=== PATIENT | male | born 1980 ===

== ENCOUNTER 2020-09-03 14:55 | Inpatient (IN) | payer SELFPAY ==
[~2020-09-03 14:55] MED LIST: Iopamidol-370 76% 500 ML 1 ML ONE
[2020-09-03] MEDS ORDERED: Acetaminophen 500 MG TAB ONE (16:15)
[2020-09-03 16:51] LABS: #Lymphocytes 0.9 thou/uL (1.20-3.40); #Monocytes 0.7 thou/uL (0.11-0.59); #Neutrophils 7.6 thou/uL (1.40-6.50); %Basophils 0.2 % (0.0-1.0); %Eosinophils 0.2 % (0.0-10.0); %Lymphocytes 9.5 % (21.0-51.0); %Monocytes 7.2 % (0.0-10.0); %Neutrophils 82.8 % (42.0-75.0); Hemoglobin 17.3 g/dL (14.0-18.0); Mean Corpuscular HGB CONC 34.2 g/dL (32.0-36.0); Mean Corpuscular Hemoglobin 32.6 pg (27.0-31.0); Mean Corpuscular Volume 95.3 fL (78.0-98.0); Mean Platelet Volume 8.5 fL (7.4-10.4); Platelet Count 263 thou/uL (130-400); RBC Distribution Width 11.8 % (11.5-14.5); Red Blood Cell (RBC) Count 5.32 mill/uL (4.70-6.10); White Blood Cell (WBC) Count 9.2 thou/uL (4.8-10.8)
[2020-09-03] MEDS ORDERED: Albuterol 200 PUFF (6.7GM INHALER) ONE (16:58)
[2020-09-03 17:15] LABS: ALT (SGPT) 60 U/L (8-55); AST (SGOT) 33 U/L (5-34); Albumin 3.6 g/dL (3.5-5.0); Alkaline Phosphatase 89 U/L (40-110); Anion Gap 12 mmol/L (10-20); BUN (Urea Nitrogen) 11 mg/dL (8.9-20.6); CK (CPK) 108 U/L (30-200); Calc. Creatinine Clearance 0 mL/min (70-130); Calcium 8.4 mg/dL (7.8-10.44); Carbon Dioxide 24 mmol/L (22-29); Chloride 104 mmol/L (98-107); Globulin 2.9 g/dL (2.4-3.5); Glucose 128 mg/dL (70-105); Potassium 4.1 mmol/L (3.5-5.1); Protein, Total 6.5 g/dL (6.0-8.3); Sodium 136 mmol/L (136-145)
[2020-09-04 03:37] VITALS: BMI 32.8
[2020-09-04] MEDS ORDERED: Ondansetron PF 4 MG/2 ML Vial IVP PRN (05:28)
[2020-09-04] MEDS ORDERED: Acetaminophen 325 MG TAB PO PRN (05:28)
[2020-09-04] MEDS ORDERED: REMDESIVIR 200 MG in Sodium Chloride 0.9% 250 ML 210 ML IV SCH (06:00)
[2020-09-04] MEDS: Dexamethasone 4 mg/ml Vial SLOW IVP SCH (06:29)
[2020-09-04 06:42] LABS: #Eosinphils 0.1 thou/uL (0.0-0.7); #Lymphocytes 0.9 thou/uL (1.20-3.40); #Monocytes 0.7 thou/uL (0.11-0.59); #Neutrophils 7.3 thou/uL (1.40-6.50); %Basophils 0.2 % (0.0-1.0); %Eosinophils 1.2 % (0.0-10.0); %Lymphocytes 9.7 % (21.0-51.0); %Monocytes 8.2 % (0.0-10.0); %Neutrophils 80.8 % (42.0-75.0); Hemoglobin 17.3 g/dL (14.0-18.0); Mean Corpuscular HGB CONC 35.3 g/dL (32.0-36.0); Mean Corpuscular Hemoglobin 33.8 pg (27.0-31.0); Mean Corpuscular Volume 95.7 fL (78.0-98.0); Mean Platelet Volume 8.7 fL (7.4-10.4); Platelet Count 250 thou/uL (130-400); RBC Distribution Width 11.7 % (11.5-14.5); Red Blood Cell (RBC) Count 5.11 mill/uL (4.70-6.10)
[2020-09-04 07:01] LABS: ALT (SGPT) 52 U/L (8-55); AST (SGOT) 32 U/L (5-34); Albumin 3.2 g/dL (3.5-5.0); Alkaline Phosphatase 83 U/L (40-110); Bilirubin, Direct 0.3 mg/dL (0.1-0.3); Bilirubin, Total 1.1 mg/dL (0.2-1.2); Protein, Total 6.7 g/dL (6.0-8.3)
[2020-09-04 07:02] LABS: Anion Gap 14 mmol/L (10-20); BUN (Urea Nitrogen) 12 mg/dL (8.9-20.6); Calc. Creatinine Clearance 223 mL/min (70-130); Calcium 8.7 mg/dL (7.8-10.44); Carbon Dioxide 19 mmol/L (22-29); Chloride 108 mmol/L (98-107); Glucose 101 mg/dL (70-105); Potassium 3.8 mmol/L (3.5-5.1); Sodium 137 mmol/L (136-145)
[2020-09-04] MEDS: Enoxaparin Sodium 40 MG/0.4 ML SYRINGE SC SCH ×2 (08:45→21:40)
[2020-09-04] MEDS: Zinc Sulfate 220 MG CAP PO SCH (08:45)
[2020-09-04] MEDS: Ascorbic Acid 500 mg Chewable Tablet PO SCH (08:45)
[2020-09-04] MEDS: Folic Acid 1 MG TAB PO SCH (08:45)
[2020-09-04] MEDS: Thiamine 100 MG TAB PO SCH (08:45)
[2020-09-04] MEDS: Famotidine 20 MG TAB PO SCH ×2 (08:45→21:40)
[2020-09-04] MEDS ORDERED: Benzonatate 100 MG CAP PO PRN (21:59)
[2020-09-04] MEDS ORDERED: guaiFENesin ER 600 MG TAB PO SCH (22:15)
[2020-09-05] MEDS: Dexamethasone 4 mg/ml Vial SLOW IVP SCH (05:37)
[2020-09-05 05:58] LABS: #Eosinphils 0.1 thou/uL (0.0-0.7); #Lymphocytes 1.2 thou/uL (1.20-3.40); #Neutrophils 7.5 thou/uL (1.40-6.50); %Basophils 0.3 % (0.0-1.0); %Eosinophils 0.8 % (0.0-10.0); %Lymphocytes 12.1 % (21.0-51.0); %Monocytes 10.2 % (0.0-10.0); %Neutrophils 76.6 % (42.0-75.0); Hemoglobin 16.4 g/dL (14.0-18.0); Mean Corpuscular HGB CONC 33.4 g/dL (32.0-36.0); Mean Corpuscular Hemoglobin 31.9 pg (27.0-31.0); Mean Corpuscular Volume 95.5 fL (78.0-98.0); Mean Platelet Volume 8.5 fL (7.4-10.4); Platelet Count 309 thou/uL (130-400); RBC Distribution Width 11.6 % (11.5-14.5); Red Blood Cell (RBC) Count 5.13 mill/uL (4.70-6.10); White Blood Cell (WBC) Count 9.8 thou/uL (4.8-10.8)
[2020-09-05] MEDS ORDERED: REMDESIVIR 100 MG in Sodium Chloride 0.9% 250 ML 230 ML IV SCH (06:00)
[2020-09-05 06:20] LABS: ALT (SGPT) 57 U/L (8-55); AST (SGOT) 32 U/L (5-34); Albumin 3.2 g/dL (3.5-5.0); Alkaline Phosphatase 84 U/L (40-110); Bilirubin, Direct 0.3 mg/dL (0.1-0.3); Bilirubin, Total 0.8 mg/dL (0.2-1.2); Protein, Total 6.5 g/dL (6.0-8.3)
[2020-09-05 06:21] LABS: Anion Gap 12 mmol/L (10-20); BUN (Urea Nitrogen) 13 mg/dL (8.9-20.6); Calc. Creatinine Clearance 176 mL/min (70-130); Calcium 8.8 mg/dL (7.8-10.44); Carbon Dioxide 23 mmol/L (22-29); Chloride 106 mmol/L (98-107); Glucose 113 mg/dL (70-105); Potassium 3.7 mmol/L (3.5-5.1); Sodium 137 mmol/L (136-145)
[2020-09-05] MEDS: Thiamine 100 MG TAB PO SCH (08:28)
[2020-09-05] MEDS: Ascorbic Acid 500 mg Chewable Tablet PO SCH (08:28)
[2020-09-05] MEDS: Zinc Sulfate 220 MG CAP PO SCH (08:28)
[2020-09-05] MEDS: guaiFENesin ER 600 MG TAB PO SCH ×2 (08:29→21:12)
[2020-09-05] MEDS: Folic Acid 1 MG TAB PO SCH (08:29)
[2020-09-05] MEDS: Famotidine 20 MG TAB PO SCH ×2 (08:29→21:12)
[2020-09-05] MEDS: Enoxaparin Sodium 40 MG/0.4 ML SYRINGE SC SCH ×2 (08:29→21:13)
[2020-09-06] MEDS: Dexamethasone 4 mg/ml Vial SLOW IVP SCH (05:37)
[2020-09-06 06:31] LABS: #Basophils 0.1 thou/uL (0.0-0.2); #Eosinphils 0.1 thou/uL (0.0-0.7); #Lymphocytes 1.7 thou/uL (1.20-3.40); #Monocytes 0.9 thou/uL (0.11-0.59); #Neutrophils 6.4 thou/uL (1.40-6.50); %Basophils 0.6 % (0.0-1.0); %Eosinophils 1.2 % (0.0-10.0); %Lymphocytes 18.4 % (21.0-51.0); %Monocytes 9.7 % (0.0-10.0); Mean Corpuscular HGB CONC 34.5 g/dL (32.0-36.0); Mean Corpuscular Hemoglobin 32.8 pg (27.0-31.0); Mean Corpuscular Volume 95.3 fL (78.0-98.0); Mean Platelet Volume 8.3 fL (7.4-10.4); Platelet Count 336 thou/uL (130-400); RBC Distribution Width 11.7 % (11.5-14.5); White Blood Cell (WBC) Count 9.1 thou/uL (4.8-10.8)
[2020-09-06 06:52] LABS: Anion Gap 12 mmol/L (10-20); BUN (Urea Nitrogen) 12 mg/dL (8.9-20.6); Calc. Creatinine Clearance 179 mL/min (70-130); Calcium 8.8 mg/dL (7.8-10.44); Carbon Dioxide 24 mmol/L (22-29); Chloride 103 mmol/L (98-107); Glucose 107 mg/dL (70-105); Potassium 3.7 mmol/L (3.5-5.1); Sodium 135 mmol/L (136-145)
[2020-09-06] MEDS: Enoxaparin Sodium 40 MG/0.4 ML SYRINGE SC SCH (08:05)
[2020-09-06] MEDS: Thiamine 100 MG TAB PO SCH (08:05)
[2020-09-06] MEDS: guaiFENesin ER 600 MG TAB PO SCH (08:05)
[2020-09-06] MEDS: Famotidine 20 MG TAB PO SCH (08:05)
[2020-09-06] MEDS: Ascorbic Acid 500 mg Chewable Tablet PO SCH (08:05)
[2020-09-06] MEDS: Folic Acid 1 MG TAB PO SCH (08:06)
[2020-09-06] MEDS: Zinc Sulfate 220 MG CAP PO SCH (08:06)
[2020-09-06 17:50] VITALS: BP 132/82; TEMP 98.2
== END 2020-09-06 17:45 | disposition home or self-care (01) | DRG 177 ==
LOC: ERS 14:55 → EDBD 22:34 → T4-A 22:34
PROVIDERS: ADMIT Internal Medicine; ATTEND Internal Medicine
PROC: 8E0ZXY6 Isolation (ICD-10-PCS; principal; 2020-09-04)
DX: U07.1 COVID-19 (principal); J12.82 Pneumonia due to coronavirus disease 2019; J96.01 Acute respiratory failure with hypoxia; F10.10 Alcohol abuse, uncomplicated; E66.01 Morbid (severe) obesity due to excess calories; Z68.32 Body mass index [BMI] 32.0-32.9, adult
CPT/HCPCS: 36415; 71045; 71275; 80048; 80053; 80076; 82550; 82728; 84484; 85025; 85379; 86140; 93005; J1100; J1650; Q9967